=== PATIENT | male | born 1955 | race American Indian/Alaskan Native ===

== ENCOUNTER 2019-05-16 07:48 | Day surgery (SDC) | payer BC, OTHER ==
[~2019-05-16 07:48] MED LIST: Midazolam 1 MG/ML 2 ML SDV ONE; fentaNYL 100 MCG/2 ML SDV ONE
[2019-05-16] MEDS ORDERED: fentaNYL 100 MCG/2 ML SDV IV ONE (07:49)
[2019-05-16] MEDS ORDERED: Midazolam 1 MG/ML 2 ML SDV IV ONE (07:49)
[2019-05-16] MEDS: Dextrose 5%-0.45% NaCl 1,000 ML IV SCH (08:15)
[2019-05-16] MEDS: fentaNYL 100 MCG/2 ML SDV IV ONE ×2 (08:24→08:25)
[2019-05-16] MEDS: Midazolam 1 MG/ML 2 ML SDV IV ONE ×6 (08:26→08:32)
--- NOTE | 2019-05-16 13:12 | OR ---
DATE: 05/16/2019 PROCEDURE: Total colonoscopy. INSTRUMENT USED: [id number] Olympus video colonoscope. PREMEDICATIONS: Fentanyl 100 mcg intravenous, Versed 4 mg intravenous, and nasal O2 cannula. The procedure was done under pulse oximetry, BP recording, and case monitor INDICATION: Screening colonoscopic examination is done for detection of any polypoid lesions and removal, endoscopic hemostasis therapy if needed. DESCRIPTION OF PROCEDURE: Initial rectal exam was unremarkable. Rigid anoscopy showed small internal hemorrhoids without bleeding from them. The colonoscope was passed with ease. Scattered diverticula were noted in the distal left colon along with deformity. The scope was passed with ease up to the ileocecal area. Photographs were taken of the normal-appearing cecum identified by landmarks of appendiceal orifice and double-bulged ileocecal folds. No bleeding was noted from any of the visualized areas at the commencement of the examination. The bowel preparation was found to be adequate, [place] scale 3 in all the regions. No stricture. No vascular ectasia. No large isolated ulcerations seen. No evidence of diffuse inflammatory bowel disease in the form of friability, contact bleeding, or ulcerations. No polyp or tumor mass identified. Probing the proximal sides of folds and flexures using adequate distention and clearing of the stool material, withdrawal of the scope was made, cecum to rectum time over 6 minutes. No bleeding was noted from any of the visualized areas at the completion of examination. IMPRESSION: 1. Internal hemorrhoids. 2. Diverticulosis. The patient tolerated the procedure well. [facility] /[id number]
--- NOTE | 2019-05-16 13:30 | LETTER ---
05/16/2019 Ellie Baez MD [facility] [address] [place] [address] RE: TINO WOLF : [address] Baez: Mr. Tino Wolf had colonoscopic examination done this morning and he tolerated the procedure well. I herewith send a copy of the endoscopy note and photographs for your review. Thank you. Sincerely, [facility] /[id number]
== END 2019-05-16 10:30 | disposition home or self-care (01) ==
LOC: DL.ENDO 07:48
PROVIDERS: ATTEND Internal Medicine Gastroenterology
DX: Z12.11 Encounter for screening for malignant neoplasm of colon (principal); K57.30 Diverticulosis of large intestine without perforation or abscess without bleeding; K64.8 Other hemorrhoids; K90.49 Malabsorption due to intolerance, not elsewhere classified; I10 Essential (primary) hypertension; E78.00 Pure hypercholesterolemia, unspecified; F17.290 Nicotine dependence, other tobacco product, uncomplicated; Z85.46 Personal history of malignant neoplasm of prostate
CPT/HCPCS: G0121; J2250; J3010; J7042

== ENCOUNTER 2022-04-10 04:44 | Emergency (ER) | payer BC, OTHER ==
[2022-04-10] MEDS ORDERED: fentaNYL 100 MCG/2 ML SDV IVPUSH ONE (05:02)
[2022-04-10] MEDS ORDERED: Sodium Chloride 0.9% 10 ML Syringe FLUSH PRN (05:03)
[2022-04-10 05:48] LABS: ANION GAP 10.3 mEq/L (7-13)
[2022-04-10] MEDS ORDERED: Iopamidol 612 MG/ML 100 ML Bottle IVPUSH ONE (05:59)
[2022-04-10] MEDS ORDERED: Ketorolac 30 MG/ML SDV IVPUSH ONE (08:27)
== END 2022-04-10 08:35 | disposition home or self-care (01) ==
LOC: DL.ED 04:44
DX: N13.2 Hydronephrosis with renal and ureteral calculous obstruction (principal); E78.00 Pure hypercholesterolemia, unspecified; I10 Essential (primary) hypertension; Z88.8 Allergy status to other drugs, medicaments and biological substances; Z79.82 Long term (current) use of aspirin; Z79.899 Other long term (current) drug therapy
CPT/HCPCS: 36415; 74176; 80053; 81001; 83735; 85025; 96374; 96375; 99284; J1885; J3010; J3490

== ENCOUNTER 2022-04-11 23:55 | Emergency (ER) | payer BC, OTHER | END 2022-04-12 03:37 | disposition left against medical advice (07) | LOC: DL.ED 23:55 | DX: Z53.21 Procedure and treatment not carried out due to patient leaving prior to being seen by health care provider (principal) ==

== ENCOUNTER 2022-04-12 10:01 | Emergency (ER) | payer BC, OTHER ==
[2022-04-12] MEDS ORDERED: Ondansetron 4 MG Tab.DIS PO ONE (10:02)
[2022-04-12] MEDS: HYDROmorphone 0.5 MG/0.5 ML Syringe IM ONE (10:49)
[2022-04-12] MEDS: Ondansetron 4 MG Tab.DIS PO ONE (10:49)
[2022-04-12] MEDS: Ondansetron 4 MG Tab.DIS ONE (10:50)
== END 2022-04-12 10:53 | disposition home or self-care (01) ==
LOC: DL.ED 10:01
DX: N20.0 Calculus of kidney (principal); I10 Essential (primary) hypertension; E78.00 Pure hypercholesterolemia, unspecified; Z79.899 Other long term (current) drug therapy
CPT/HCPCS: 96372; 99283; A9270; J1170

== ENCOUNTER 2022-08-13 19:59 | Emergency (ER) | payer OTHER ==
[2022-08-13] MEDS ORDERED: Sodium Chloride 0.9% 10 ML Syringe FLUSH PRN (20:16)
[2022-08-13] MEDS: Sodium Chloride 0.9% 1,000 ML IV ONE ×2 (20:50→21:47)
[2022-08-13 21:20] LABS: ANION GAP 10.1 mEq/L (7-13); CHLORIDE,CL 106 mmol/L (98-107); SODIUM,NA 142 mmol/L (136-145)
[2022-08-13 21:39] LABS: ESTIMATED GFR 45 mL/min (>=60)
[2022-08-13] MEDS: Iopamidol 612 MG/ML 100 ML Bottle IVPUSH ONE (21:54)
[2022-08-13] MEDS: Ondansetron 4 MG/2 ML SDV IVPUSH ONE (22:25)
[2022-08-13] MEDS: HYDROmorphone 0.5 MG/0.5 ML Syringe IVPUSH ONE (22:25)
[2022-08-13] MEDS: Ketorolac 30 MG/ML SDV IVPUSH ONE (23:14)
[2022-08-13] MEDS: Tamsulosin 0.4 MG Cap.ER PO ONE (23:51)
[2022-08-14] MEDS: Ondansetron 4 MG/2 ML SDV IVPUSH ONE (00:30)
== END 2022-08-14 00:35 ==
LOC: DL.ED 19:59
DX: N13.2 Hydronephrosis with renal and ureteral calculous obstruction (principal); N17.9 Acute kidney failure, unspecified; E78.00 Pure hypercholesterolemia, unspecified; I10 Essential (primary) hypertension; Z72.0 Tobacco use; Z86.16 Personal history of COVID-19; Z88.8 Allergy status to other drugs, medicaments and biological substances; Z79.82 Long term (current) use of aspirin; Z79.899 Other long term (current) drug therapy
CPT/HCPCS: 36415; 74178; 80053; 81001; 83605; 83615; 85025; 86140; 87040; 87635; 96361; 96374; 96375; 96376; 99285; A9270; J1170; J1885; J2405; J7030; Q9967; 99284; U0002

== ENCOUNTER 2023-11-30 19:48 | Emergency (ER) | payer OTHER ==
[2023-11-30] MEDS: Sodium Chloride 0.9% 10 ML Syringe FLUSH PRN (23:23)
[2023-11-30 23:29] LABS: BASOPHILS PERCENT AUTO 0.2 % (0.0-1.0); EOSINOPHILS PERCENT AUTO 2.4 % (1.0-3.0); HEMOGLOBIN 15.5 g/dL (14.0-18.0); LYMPHOCYTES PERCENT AUTO 24.4 % (20.5-50.1); MEAN CORPUSCULAR HEMOGLOBIN 30.7 pg (27.0-34.0); MEAN CORPUSCULAR HGB CONC 34.4 g/dL (33.0-35.0); MEAN CORPUSCULAR VOLUME 89.1 fL (80-100); MONOCYTES PERCENT AUTO 11.2 % (2-8); NEUTROPHILS PERCENT AUTO 61.8 % (42.2-75.2); PLATELET COUNT,PLT 251 10^3/uL (150-450); RED BLOOD CELL COUNT 5.05 10^6/uL (4.6-6.2); WHITE BLOOD CELL COUNT,WBC 8.8 10^3/uL (5.0-10.0)
[2023-11-30 23:59] LABS: ALBUMIN 3.7 g/dL (3.4-5.0); ANION GAP 10.2 mEq/L (7-13); BILIRUBIN TOTAL 0.4 mg/dL (0.2-1.0); BUN/CREATININE RATIO 16.8 (No establ ref range); C-REACTIVE PROTEIN 0.64 ng/dL (<=0.50); CALCIUM 8.8 mg/dL (8.5-10.1); CREATININE 1.31 mg/dL (0.70-1.30); EST CRCL DRUG DOSING (CG) 56.68 mL/min; POTASSIUM,K 4.2 mmol/L (3.5-5.1); PROTEIN TOTAL,TP 7.5 g/dL (6.4-8.2)
[2023-12-01 00:06] LABS: LACTIC ACID 0.7 mmol/L (0.4-2.0)
[2023-12-01] MEDS: Sodium Chloride 0.9% 1,000 ML IV ONE (00:20)
[2023-12-01] MEDS: Iopamidol 612 MG/ML 100 ML Bottle IVPUSH ONE (00:35)
[2023-12-01] MEDS: Lactulose Soln 10 GM/15 ML 30 ML UD Cup PO ONE (01:11)
== END 2023-12-01 01:22 | disposition home or self-care (01) ==
LOC: DL.ED 19:48
DX: K57.30 Diverticulosis of large intestine without perforation or abscess without bleeding (principal); K59.00 Constipation, unspecified; I10 Essential (primary) hypertension; E78.00 Pure hypercholesterolemia, unspecified; Z86.16 Personal history of COVID-19; Z88.8 Allergy status to other drugs, medicaments and biological substances; Z79.899 Other long term (current) drug therapy; Z79.82 Long term (current) use of aspirin
CPT/HCPCS: 36415; 74019; 74177; 80053; 82150; 83605; 83690; 85025; 86140; 99284; A9270; J7030; Q9967; J3490

== ENCOUNTER 2024-01-16 20:46 | Emergency (ER) | payer OTHER ==
[2024-01-16] MEDS: Ibuprofen 600 MG Tab PO ONE (21:36)
[2024-01-16] MEDS: Benzonatate 100 MG Cap PO ONE (21:36)
[2024-01-16 22:10] LABS: CORONAVIRUS COVID-19 NAA NEGATIVE (NEGATIVE); INFLUENZA A NAA NEGATIVE (NEGATIVE); INFLUENZA B NAA NEGATIVE (NEGATIVE); RESPIRATORY SYNCYTIAL VIR NAA NEGATIVE (NEGATIVE)
== END 2024-01-16 22:31 | disposition home or self-care (01) ==
LOC: DL.ED 20:46
DX: J06.9 Acute upper respiratory infection, unspecified (principal); I10 Essential (primary) hypertension; E78.00 Pure hypercholesterolemia, unspecified; F17.210 Nicotine dependence, cigarettes, uncomplicated; Z86.16 Personal history of COVID-19; Z79.82 Long term (current) use of aspirin; Z79.899 Other long term (current) drug therapy; Z88.8 Allergy status to other drugs, medicaments and biological substances
CPT/HCPCS: 0241U; 71045; 93005; 93010; 99284; 99285; A9270-GY